=== PATIENT | male | born 1975 | race Caucasian/White ===

== ENCOUNTER 2018-06-27 08:50 | Emergency (ER) | payer MEDICAID ==
[~2018-06-27] VITALS: Ht 175.3 cm; Wt 84.0 kg
[2018-06-27 09:03] VITALS: BP 137/67
[2018-06-27] MEDS ORDERED: PHEN100C4 PO (09:03)
== END 2018-06-27 11:43 | disposition left against medical advice (07) ==
LOC: ER 08:50
DX: M79.641 Pain in right hand (principal); R56.9 Unspecified convulsions; Z88.0 Allergy status to penicillin; X50.3XXA Overexertion from repetitive movements, initial encounter; Y92.89 Other specified places as the place of occurrence of the external cause
CPT/HCPCS: 99281